=== PATIENT | female | born 1940 ===

== ENCOUNTER → 2023-01-25 12:27 | Outpatient (CLI) | payer MEDICARE, SELFPAY ==
--- NOTE | 2023-01-25 | DI.MRI.S_ITS ---
PROCEDURE: MR HEAD/BRAIN WO CON INDICATIONS: White matter disease, unspecified TECHNIQUE: The patient was unable to tolerate the full examination. The following imaging sequences were acquired: Sagittal FLAIR images, axial T2 weighted, axial T1 weighted COMPARISON: None. FINDINGS: Image quality: This examination is limited by involuntary motion artifact and incomplete protocol. On these images, brain parenchymal volume loss and chronic small vessel ischemic change can be seen. There is prominence of the lateral ventricles and the 3rd ventricle, which are proportional to the degree of sulcal atrophy. The basal cisterns are patent. No significant soft tissue abnormality is seen. IMPRESSION: Highly limited study, without a significant acute abnormality identified. When clinically appropriate, please consider a repeat study, when the patient is able to tolerate the standard examination. Dictated by: Papo Wallace M.D. on 01/25/2023 at 13:14 Approved by: Papo Wallace M.D. on 01/25/2023 at 13:17
== END ==
PROVIDERS: Referring Provider Physician Assistant; Visit Provider Physician Assistant
DX: R90.82 White matter disease, unspecified (principal)
CPT/HCPCS: 70551